=== PATIENT | male | born 1975 | race Caucasian/White ===

== ENCOUNTER 2024-02-21 02:07 | Emergency (ER) | payer OTHER ==
[2024-02-21] MEDS: PROPARACAINE 0.5% OPHTH DROPS 15 ML BTL RIGHT EYE STA (02:27)
[2024-02-21] MEDS: FLUORESCEIN STRIPS 1 MG STRIP RIGHT EYE ONE (02:27)
[2024-02-21 02:48] VITALS: BP 146/59; PULSE 87; RESP 16; TEMP 97.4
--- NOTE | 2024-02-21 03:10 | ED ---
Eye Problem HPI - General Chief complaint: Eye Problems Stated complaint: Possible object in right eye, pain in right eye Time Seen by Provider: 02/21/24 02:16 Source: patient Mode of arrival: ambulatory Limitations: no limitations - History of Present Illness Initial comments: 48-year-old male presenting to the ED with foreign body sensation in his right eye. Patient states he was trimming his marquez approximately 3 hours ago when he felt a hair go into his right eye. States he tried flushing his eye and removing the object himself however still feels foreign body sensation in his right eye prompting presentation to the ED for further evaluation. Notes some blurry vision however denies loss of vision. No fever or chills. No other complaints at this time. - Related Data Allergies Allergy/AdvReac Type Severity Reaction Status Date / Time No Known Allergies Allergy Verified 02/21/24 02:14 Review of Systems ROS Statement: Those systems with pertinent positive or pertinent negative responses have been documented in the HPI. ROS Other: All systems not noted in ROS Statement are negative. Past Medical History Past Medical History: No Reported History Past Surgical History: No Surgical Hx Reported General Exam Limitations: no limitations General appearance: alert, in no apparent distress Eye exam: Present: PERRL, EOMI, conjunctival injection, other (Fluorescein exam was performed which does show a corneal abrasion however extensive examination failed to reveal foreign body. There was some mucus formation on the eye this was removed with swab and irrigation.) Neck exam: Present: normal inspection Respiratory exam: Present: wheezes (Patient reports he is a smoker) Cardiovascular Exam: Present: regular rate GI/Abdominal exam: Present: soft Neurological exam: Present: alert, oriented X3 Skin exam: Present: warm, dry Course Vital Signs 02/21/24 02:10 Temperature 97.4 F L Pulse Rate 87 Respiratory 16 Rate Blood Pressure 146/59 O2 Sat by Pulse 99 Oximetry Medical Decision Making - Medical Decision Making Was pt. sent in by a medical professional or institution (, PA, [employer], urgent care, hospital, or penitentiary...) When possible be specific @ -No Did you speak to anyone other than the patient for history (EMS, parent, family, police, friend...)? What history was obtained from this source @ -No Did you review nursing and triage notes (agree or disagree)? Why? @ -I reviewed and agree with nursing and triage notes Were old charts reviewed (outside hosp., previous admission, EMS record, old EKG, old radiological studies, urgent care reports/EKG's, penitentiary records)? Report findings @ -No old charts were reviewed Differential Diagnosis (chest pain, altered mental status, abdominal pain women, abdominal pain men, vaginal bleeding, weakness, fever, dyspnea, syncope, h eadache, dizziness, GI bleed, back pain, seizure, CVA, palpatations, mental health, musculoskeletal)? @ -Corneal abrasion, corneal laceration, foreign body, orbital cellulitis. Is not meant to be an all-inclusive list. EKG interpreted by me (3pts min.). @ -None X-rays interpreted by me (1pt min.). @ -None done CT interpreted by me (1pt min.). @ -None done U/S interpreted by me (1pt. min.). @ -None done What testing was considered but not performed or refused? (CT, X-rays, U/S, labs)? Why? @ -None What meds were considered but not given or refused? Why? @ -None Did you discuss the management of the patient with other professionals (professionals i.e. , PA, [employer], lab, RT, psych nurse, social secretary, control clerk food and beverage, teacher, ambulance officer, nurse case manager)? Give summary @ -No Was smoking cessation discussed for >3mins.? @ -No Was critical care preformed (if so, how long)? @ -No Were there social determinants of health that impacted care today? How? (Homelessness, low income, unemployed, alcoholism, drug addiction, transportation, low edu. Level, literacy, decrease access to med. care, alf, rehab)? @ -No Was there de-escalation of care discussed even if they declined (Discuss DNR or withdrawal of care, Hospice)? DNR status @ -No What co-morbidities impacted this encounter? (DM, HTN, Smoking, COPD, CAD, Cancer, CVA, ARF, Chemo, Hep., AIDS, mental health diagnosis, sleep apnea, morbid obesity)? @ -None Was patient admitted / discharged? Hospital course, mention meds given and route, prescriptions, significant lab abnormalities, going to OR and other pertinent info. @ -Discharge 48-year-old male presenting to the ED with complaints of foreign body sensation in right eye after trimming his marquez. He notes that he tried to remove this foreign body by himself and also tried to irrigate his eye however still notes foreign body sensation prompting presentation to the ED for evaluation. On exam, failed to identify foreign body. There was evidence of corneal abrasion on fluorescein staining. Tetanus was updated. Provided tobramycin eyedrops and referral to see ophthalmology. Discharged home in stable condition advised return precautions with patient and family who verbalized agreement. Undiagnosed new problem with uncertain prognosis? @ -No Drug Therapy requiring intensive monitoring for toxicity (Heparin, Nitro, Insulin, Cardizem)? @ -No Were any procedures done? @ -No Diagnosis/symptom? @ -Foreign body sensation right eye, corneal abrasion Acute, or Chronic, or Acute on Chronic? @ -Acute Uncomplicated (without systemic symptoms) or Complicated (systemic symptoms)? @ -Uncomplicated Side effects of treatment? @ -No Exacerbation, Progression, or Severe Exacerbation? @ -No Poses a threat to life or bodily function? How? (Chest pain, [place], [place], pneumonia, PE, COPD, DKA, ARF, appy, cholecystitis, CVA, Diverticulitis, Homicidal, Suicidal, threat to staff... and all critical care pts) @ -No Disposition Clinical Impression: Corneal abrasion Disposition: HOME SELF-CARE Condition: Good Instructions (If sedation given, give patient instructions): Eye Foreign Body (ED), Corneal Abrasion (ED) Additional Instructions: Please return to the Emergency Department if symptoms worsen or any other concerns. Please follow-up with ophthalmology. 1 to 2 drops in the right eye every 4 hours for the next 7 days. Is patient prescribed a controlled substance at d/c from ED?: No Referrals: None,Stated [Primary Care Provider] - 1-2 days Freddy Ventura MD [STAFF PHYSICIAN] - 1-2 days Rajwinder Koehler MD [STAFF PHYSICIAN] - 1-2 days Zakia Sanchez MD [STAFF PHYSICIAN] - 1-2 days Time of Disposition: 03:18
[2024-02-21] MEDS: DIPH,PERTUS(ACELL)TETVAC-LF 0.5 ML VIAL IM ONE (03:30)
[2024-02-21] MEDS: TOBRAMYCIN 0.3% OPHTH DROPS 5 ML BTL RIGHT EYE STA (03:33)
== END 2024-02-21 03:40 | disposition home or self-care (01) ==
LOC: EC 02:07
DX: S05.01XA Injury of conjunctiva and corneal abrasion without foreign body, right eye, initial encounter (principal); Z23 Encounter for immunization; X58.XXXA Exposure to other specified factors, initial encounter
CPT/HCPCS: 90471; 90715; 99283